=== PATIENT | male | born 1990 | race Caucasian/White ===

== ENCOUNTER 2017-05-08 18:14 | Emergency (ER) | payer BC, MEDICAID ==
[2017-05-08 18:25] VITALS: BP 141/90
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
== END 2017-05-08 18:40 | disposition home or self-care (01) ==
LOC: ER 18:14
DX: R07.89 Other chest pain (principal); F17.200 Nicotine dependence, unspecified, uncomplicated